=== PATIENT | female | born 1945 | race Caucasian/White ===

== ENCOUNTER 2017-08-10 07:35 | Day surgery (SDC) | payer OTHER, MEDICAID ==
[2017-08-10] MEDS ORDERED: LIDOCAINE 4% SOLUTION 50 ML BTL (08:51)
[2017-08-10] MEDS ORDERED: MIDAZOLAM 1 MG/ML 2 ML INJ ×2 (09:37)
[2017-08-10] MEDS ORDERED: FENTAnyl 50 MCG/ML VIAL (09:37)
== END 2017-08-10 17:31 | disposition home or self-care (01) ==
LOC: GIL 07:35
DX: K92.1 Melena (principal); K29.50 Unspecified chronic gastritis without bleeding; K21.0 Gastro-esophageal reflux disease with esophagitis; D12.6 Benign neoplasm of colon, unspecified; K57.90 Diverticulosis of intestine, part unspecified, without perforation or abscess without bleeding; K64.8 Other hemorrhoids
CPT/HCPCS: 43239; 88305; 88312; 88313